=== PATIENT | female | born 2000 | race Caucasian/White ===

== ENCOUNTER 2022-07-24 14:04 | Emergency (ER) | payer OTHER ==
[~2022-07-24] VITALS: Ht 170 cm; Wt 95.2 kg
[2022-07-24] MEDS ORDERED: TRANEXAMIC ACID 100 MG/ML 10 ML INJECTION ONE (14:30)
--- NOTE | 2022-07-24 14:30 | ED EENT ---
History of Present Illness General Chief Complaint: Nasal Problems Stated Complaint: NOSE BLEEDS Source: patient Exam Limitations: no limitations (CARYN CAMARENA APRN) History of Present Illness Date Seen by Provider: Jul 24, 2022 Time Seen by Provider: 14:30 (CARYN CAMARENA APRN) Initial Comments 21-year-old female presents for left-sided nosebleed. Symptoms present since about 1230. She has had nosebleeds her whole life but never 1 or lasted this long. She states she is also had large clots from her rectum area. No trauma. She is not on any blood thinning medications specifically but does state that she took aspirin for headache pain last night. All other systems reviewed and negative except documented per HPI. Voice recognition software was used to help create this chart (ROSENDO NEWMAN DO) Allergies and Home Medications Allergies Coded Allergies: No Known Drug Allergies (Unverified , 07/24/22) Patient Home Medication List Home Medication List Reviewed: Yes (ROSENDO NEWMAN DO) Review of Systems Review of Systems Constitutional: see HPI (ROSENDO NEWMAN DO) Past Iugygpy-Widrtp-Cwmgyh Hx Patient Social History Tobacco Use?: No Use of E-Cig and/or Vaping dev: No Substance use?: No Alcohol Use?: No (ROSENDO NEWMAN DO) Physical Exam Vital Signs Vital Signs - First Documented 07/24/22 14:15 Temp 36.8 Pulse 77 Resp 18 B/P (MAP) 130/89 (103) Pulse Ox 98 O2 Delivery Room Air (ROSENDO NEWMAN DO) Height, Weight, BMI Height: '" Weight: lbs. oz. kg; BMI Method: (CARYN CAMARENA APRN) General Appearance: WD/WN, no apparent distress Eyes: bilateral eye normal inspection, bilateral eye PERRL, bilateral eye EOMI Ears: bilateral ear auricle normal, bilateral ear canal normal, bilateral ear TM normal Nose: other (Anterior left-sided nosebleed. There is no area with a small vesicle that is the area of bleeding. No septal hematoma.) Mouth/Throat: normal mouth inspection, other (Blood in the posterior oropharynx from her nose.) Cardiovascular: regular rate, rhythm, no murmur Respiratory: chest non-tender, normal breath sounds Neurologic/Psychiatric: alert, oriented x 3 Skin: normal color, warm/dry (ROSENDO NEWMAN DO) Progress/Results/Core Measures Results/Orders Lab Results Laboratory Tests Test 07/24/22 14:57 Range/Units White Blood Count 10.4 4.3-11.0 10^3/uL Red Blood Count 4.24 3.80-5.11 10^6/uL Hemoglobin 12.6 11.5-16.0 g/dL Hematocrit 36 35-52 % Mean Corpuscular Volume 86 80-99 fL Mean Corpuscular Hemoglobin 30 25-34 pg Mean Corpuscular Hemoglobin Concent 35 32-36 g/dL Red Cell Distribution Width 12.5 10.0-14.5 % Platelet Count 317 130-400 10^3/uL Mean Platelet Volume 8.9 L 9.0-12.2 fL Immature Granulocyte % (Auto) 0 % Neutrophils (%) (Auto) 63 42-75 % Lymphocytes (%) (Auto) 29 12-44 % Monocytes (%) (Auto) 6 0-12 % Eosinophils (%) (Auto) 1 0-10 % Basophils (%) (Auto) 1 0-10 % Neutrophils # (Auto) 6.5 1.8-7.8 X 10^3 Lymphocytes # (Auto) 3.0 1.0-4.0 X 10^3 Monocytes # (Auto) 0.6 0.0-1.0 X 10^3 Eosinophils # (Auto) 0.1 0.0-0.3 10^3/uL Basophils # (Auto) 0.1 0.0-0.1 10^3/uL Immature Granulocyte # (Auto) 0.0 0.0-0.1 10^3/uL (ROSENDO NEWMAN DO) My Orders Orders - ROSENDO NEWMAN DO Oxymetazoline 0.05% Nasal [place] (Afrin 0. (07/24/22 14:47) (ROSENDO NEWMAN DO) Medications Given in ED Current Medications Medications Dose Ordered Sig/Wendy Route Start Time Stop Time Status Last Admin Dose Admin Oxymetazoline HCl 30 ml STK-MED ONCE .ROUTE 07/24/22 14:47 07/24/22 14:48 DC 07/24/22 14:51 30 ML Tranexamic Acid 10 MG/KG ONCE ONCE NA 07/24/22 14:30 07/24/22 14:31 DC 07/24/22 14:51 1,000 MG (ROSENDO NEWMAN DO) Vital Signs/I&O 07/24/22 14:15 Temp 36.8 Pulse 77 Resp 18 B/P (MAP) 130/89 (103) Pulse Ox 98 O2 Delivery Room Air (ROSENDO NEWMAN DO) Departure Communication (Admissions) Patient is hemodynamically stable. Large amount of bleeding with blood clots on arrival. Use Afrin, TXA and chemical cautery silver nitrate stick as well as pressure. After 30 minutes of pressure there is no obvious recurrence of bleeding. I took off the clamp and had a period of observation and when she had no recurrence of bleeding. She will be discharged home in stable condition with strict return precautions. Advised her if she has recurrence of bleeding she should use the Afrin and placed a clamp for 45 minutes. If she has bleeding after this she needs to return to the emergency department. She states understanding. (ROSENDO NEWMAN DO) Impression Primary Impression: Epistaxis Disposition: 01 HOME, SELF-CARE Condition: Stable Departure-Patient Inst. Referrals: NO,LOCAL PHYSICIAN (PCP/Family) Primary Care Physician Patient Instructions: Nosebleeds ED Add. Discharge Instructions: If you do start bleeding again, use the Afrin immediately and place the clamp for about 45 minutes. Remove the clamp and if you still have bleeding replace the clamp and come to the emergency department. Do not blow your nose for 48 hours. Follow-up with your primary doctor for any nonemergent needs. All discharge instructions reviewed with patient and/or family. Voiced understanding. CARYN CAMARENA APRN Jul 24, 2022 14:30 ROSENDO NEWMAN DO Jul 24, 2022 15:01
[2022-07-24] MEDS ORDERED: OXYMETAZOLINE (AFRIN) 0.05% NA 30 ML BTL ONE ×2 (14:47→21:00)
[2022-07-24 15:08] LABS: BASOPHILS # (AUTO) 0.1 10^3/uL (0.0-0.1); BASOPHILS % (AUTO) 1 % (0-10); EOSINOPHILS # (AUTO) 0.1 10^3/uL (0.0-0.3); EOSINOPHILS % (AUTO) 1 % (0-10); HEMATOCRIT 36 % (35-52); HEMOGLOBIN 12.6 g/dL (11.5-16.0); LYMPHOCYTES % (AUTO) 29 % (12-44); MEAN CORPUSCULAR HEMOGLOBIN 30 pg (25-34); MEAN CORPUSCULAR HGB CONC 35 g/dL (32-36); MEAN CORPUSCULAR VOLUME 86 fL (80-99); MEAN PLATELET VOLUME 8.9 fL (9.0-12.2); MONOCYTES # (AUTO) 0.6 X 10^3 (0.0-1.0); MONOCYTES % (AUTO) 6 % (0-12); NEUTROPHILS # (AUTO) 6.5 X 10^3 (1.8-7.8); NEUTROPHILS % (AUTO) 63 % (42-75); PLATELET COUNT 317 10^3/uL (130-400); WHITE BLOOD COUNT 10.4 10^3/uL (4.3-11.0)
[2022-07-24 16:03] VITALS: BP 125/80
== END 2022-07-24 16:05 | disposition home or self-care (01) ==
LOC: ER 14:09
DX: R04.0 Epistaxis (principal)
CPT/HCPCS: 36415; 85025